=== PATIENT | female | born 1955 | race Caucasian/White ===

== ENCOUNTER → 2021-11-19 14:32 | Outpatient (CLI) | payer OTHER, MEDICAID, SELFPAY ==
--- NOTE | 2021-11-19 14:38 | DI.ECHO.S_ITS ---
[place] +---------+ [facility] +---------+ : : [address] : : : : [id number] : : : : Phone: [phone]+ Echocardiogram Report + + :Name: SNOW CLEARY Study Date: 11/19/2021 Height: 65 in : :[facility] ReadingLocation: Weight: 127 lb : : Gender: Female BSA: 1.6 m2 : :: 1955 Age: 65 yrs BP: 119/81 mmHg: :Reason For Study: TACHYCARDIA : :Ordering Physician: SONAL, : :PALMER Performed By: Vanessa Gooden : :Referring: PALMER PENA : + + Interpretation Summary 1) Normal left ventricular size and thickness with low normal systolic function (EF 50-55%). 2) Normal right ventricular size and function. 3) There is mild aortic regurgitation. There is mild mitral regurgitation. 4) No prior Echo available for comaprison. Procedure: A two-dimensional transthoracic echocardiogram with color flow and Doppler was performed. The study quality was technically adequate. There is no prior echocardiogram noted for this patient. The patient was in sinus rhythm with heart rates between 57-65 bpm during the exam. Left Ventricle: The left ventricle is normal in size and wall thickness. The ejection fraction is estimated to be 50-55%. Left ventricular systolic function is low normal. There are no focal wall motion abnormalities. Right Ventricle: The right ventricle is normal in size and function. Atria: The left atrial size is normal. Right atrial size is normal. There is no Doppler evidence for an interatrial shunt. Mitral Valve: The mitral valve is normal in structure and function. There is mild mitral regurgitation. Aortic Valve: The aortic valve is trileaflet. The aortic valve opens well. There is no aortic valve stenosis. There is mild aortic regurgitation. Tricuspid Valve: The tricuspid valve is normal in structure and function. There is mild tricuspid regurgitation. The right ventricular systolic pressure is estimated to be at least 19 mmHg based on an estimated right atrial pressure of 3 mm Hg. Pulmonic Valve: The pulmonic valve leaflets are thin and pliable; valve motion is normal. There is mild pulmonic regurgitation. Great Vessels: The aortic root is normal size. The ascending aorta is at the upper limits of normal in size. The IVC is of normal diameter and collapses greater than 50% with a sniff. This suggests a low right atrial pressure of 3 mm Hg. Pericardium/ Pleura There is no pericardial effusion. There is no pleural effusion. MMode/2D Measurements & Calculations LVIDd: 5.0 cm LVOT diam: 2.1 cm LVIDs: 3.3 cm Ao root diam: 2.8 cm FS: 33.1 % asc Aorta Diam: 3.4 cm IVSd: 0.72 cm Ao Arch Diam (Prox Trans): 2.4 cm LVPWd: 0.65 cm LV cortes. diameter/BSA (cm/m^2): 3.0 LV sys. diameter/BSA (cm/m^2): 2.0 LA A2 area: 21.0 cm2 RA long axis: 4.7 cm LA A4 area: 13.5 cm2 RA area: 11.9 cm2 LA length (vol): 4.5 cm RA vol: 25.4 ml LA vol: 53.5 ml RA : 15.6 ml/m2 LA vol index: 32.8 ml/m2 IVC diam: 1.8 cm RVD1 (basal): 2.8 cm TAPSE: 1.8 cm Doppler Measurements & Calculations Ao V2 max: 129.1 cm/sec AI P1/2t: 818.4 msec Ao V2 mean: 88.4 cm/sec AI dec slope: 128.5 cm/sec2 Ao max P.7 mmHg Ao mean P.5 mmHg Ao V2 VTI: 31.3 cm MV E max naveed: 79.5 cm/sec TR max naveed: 199.0 cm/sec MV A max naveed: 71.0 cm/sec TR max P.8 mmHg MV E/A: 1.1 PA V2 max: 92.3 cm/sec Med Peak E' Naveed: 7.6 cm/sec PA V2 mean: 65.5 cm/sec E/E' med: 10.4 PA mean P.9 mmHg Lat Peak E' Naveed: 12.1 cm/sec E/E' lat: 6.6 E/e' average: 8.5 MV dec time: 0.27 sec Reading Physician:03:26 PM
== END ==
PROVIDERS: PCP Family Medicine; Referring Provider Internal Medicine Cardiovascular Disease; Visit Provider Internal Medicine Cardiovascular Disease
DX: I08.3 Combined rheumatic disorders of mitral, aortic and tricuspid valves (principal); I47.2 Ventricular tachycardia
CPT/HCPCS: 93306

== ENCOUNTER 2023-09-10 12:00 | Day surgery (SDC) | payer MEDICARE, SELFPAY ==
[2023-09-10] MEDS: LACTATED RINGERS 1,000 ML 42 ML IV (12:27)
[2023-09-10 12:39] VITALS: BP 121/84; PULSE 74; RESP 16; TEMP 36.7; O2SAT 100; BMI 22.4
--- NOTE | 2023-09-10 13:00 | P.HP_ITS ---
History of Present Illness History of Present Illness Date Patient Seen: 09/10/23 Chief complaint: SDC Narrative: Personal history of colon polyps and family history of colon cancer on her father's side last colonoscopy 5 years ago [facility] Social History household members: spouse Smoking Status: Never smoker alcohol intake: never Meds Home Medications and Allergies Home Medications Medication Instructions Recorded Confirmed Type estradiol 0.5 mg tablet 0.5 mg PO DAILY 09/10/23 09/10/23 History medroxyprogesterone 2.5 mg tablet 2.5 mg PO DAILY 09/10/23 09/10/23 History propranolol 120 mg capsule,24 120 mg PO DAILY 09/10/23 09/10/23 History hr,extended release valacyclovir 1 gram tablet 1,000 mg PO DAILY 09/10/23 09/10/23 History Allergies Allergy/AdvReac Type Severity Reaction Status Date / Time dexamethasone [From Decadron] AdvReac Intermediate Headache Verified 09/10/23 12:29 Exam Vital Signs (past 8 hours): - 09/10/23 12:39 Temperature 98.1 F Pulse Rate 74 Respiratory Rate 16 Blood Pressure 121/84 Pulse Oximetry 100 Oxygen Delivery Method Room Air Oxygen Delivery Method Room Air Narrative Exam Narrative: Oropharynx free of lesions Chest clear to auscultation percussion Cardiac exam reveals no S3 or murmur Assessment & Plan Assessment & Plan narrative: Personal history of colon polyps and family history of colon cancer need for follow-up surveillance colonoscopy. Risks benefits and alternatives have been explained.
--- NOTE | 2023-09-10 13:27 | PM.OP.COLON ---
Operative Date/Time/Diagnoses Date of procedure: 09/10/23 Pre-op diagnosis: See indication and findings Procedure & Clinicians Study performed: Colonoscopy Indications: Personal history of colon polyps and family history of colon cancer Surgeon: Mayur Dean Procedure Notes Procedure in detail: After informed consent was obtained the patient was placed in left lateral decubitus position. The video colonoscope was introduced the rectum slowly advanced. Scope was eventually passed the cecum. On slow with drawn mucosa was carefully examined. The scope was removed. The patient tolerated procedure well. Blood loss none Complications none Sedation mac Findings 1. Extensive pancolonic diverticulosis but particularly in the sigmoid where was quite difficult to traverse. 2. Otherwise negative colonoscopy to cecum When he should have follow-up colonoscopy in 5 years.
[2023-09-10 14:08] VITALS: BP 91/60; PULSE 72; RESP 22; TEMP 36.3; O2SAT 97
[2023-09-10 14:13] VITALS: BP 96/61; PULSE 70; RESP 17; TEMP 36.3; O2SAT 99
[2023-09-10 14:23] VITALS: BP 95/62; PULSE 68; RESP 17; TEMP 36.2; O2SAT 100
[2023-09-10 14:27] VITALS: BP 95/47; PULSE 98; RESP 15; TEMP 36.1; O2SAT 97
[2023-09-10 14:41] VITALS: BP 99/67; PULSE 63; RESP 12; TEMP 36.3; O2SAT 100
== END 2023-09-10 14:40 | disposition home or self-care (01) ==
PROVIDERS: PCP Nurse Practitioner Family; Referring Provider Internal Medicine Gastroenterology; Visit Provider Internal Medicine Gastroenterology
PROC: 0DJD8ZZ Inspection of Lower Intestinal Tract, Via Natural or Artificial Opening Endoscopic (ICD-10-PCS; CPT 45378; principal; 2023-09-10 13:00)
DX: Z12.11 Encounter for screening for malignant neoplasm of colon (principal); Z86.010 Personal history of colon polyps; Z80.0 Family history of malignant neoplasm of digestive organs; K57.30 Diverticulosis of large intestine without perforation or abscess without bleeding
CPT/HCPCS: G0105; J2704